=== PATIENT | male | born 1980 | race African-American/Black ===

== ENCOUNTER 2019-07-17 17:16 | Emergency (ER) | payer SELFPAY ==
[~2019-07-17] VITALS: Ht 182.9 cm; Wt 97.7 kg
[2019-07-17 17:38] VITALS: Ht 182.9 cm; Wt 97.7 kg
[2019-07-17 19:33] VITALS: BP 132/84
== END 2019-07-17 19:32 | disposition home or self-care (01) ==
LOC: D.ER 17:16
DX: F41.8 Other specified anxiety disorders (principal); F19.11 Other psychoactive substance abuse, in remission

== ENCOUNTER 2019-07-20 00:31 | Emergency (ER) | payer SELFPAY ==
[~2019-07-20] VITALS: Ht 182.9 cm; Wt 97.7 kg
[2019-07-20 00:34] VITALS: Ht 182.9 cm; Wt 97.7 kg
[2019-07-20 01:49] LABS: BASOPHILS 0.2 % (0-2); EOSINOPHILS 2.2 % (0-7); HEMATOCRIT 46.5 % (42.0-54.0); HEMOGLOBIN 15.6 g/dL (13.5-17.5); LYMPHOCYTES 41.9 % (15-50); MCH 30.8 pg (26.0-34.0); MCHC 33.5 g/dL (31.0-37.0); MCV 91.9 fL (80.0-100.0); MEAN PLATELET VOLUME 9.9 fL (7.4-10.4); MONOCYTES 9.6 % (2-11); NEUTROPHILS 46.1 % (40-80); PLATELET COUNT 310 10x3/uL (130-400); RBC 5.06 10x6/uL (4.20-6.10); RDW 13.4 % (11.5-14.5)
[2019-07-20 01:51] LABS: ANION GAP 11.6 mmol/L (8-16); CARBON DIOXIDE 31.4 mmol/L (21.0-32.0); CREATININE - SERUM 1.2 mg/dL (0.6-1.3)
[2019-07-20 01:57] LABS: ALBUMIN 3.8 g/dL (3.4-5.0); BILIRUBIN - TOTAL 0.3 mg/dL (0.2-1.3); PROTEIN - SERUM 7.7 g/dL (6.4-8.2)
[2019-07-20 02:22] VITALS: BP 122/67
== END 2019-07-20 02:25 | disposition home or self-care (01) ==
LOC: D.ER 00:31
PROVIDERS: Family Medicine
DX: F41.1 Generalized anxiety disorder (principal)

== ENCOUNTER 2020-03-25 12:20 | Emergency (ER) | payer BC ==
[~2020-03-25] VITALS: Ht 182.9 cm; Wt 104.5 kg
[2020-03-25 12:25] VITALS: Ht 182.9 cm; Wt 104.5 kg
[2020-03-25 13:44] VITALS: BP 160/87
== END 2020-03-25 13:44 | disposition home or self-care (01) ==
LOC: D.ER 12:20
DX: R00.0 Tachycardia, unspecified (principal); F15.10 Other stimulant abuse, uncomplicated; F41.9 Anxiety disorder, unspecified

== ENCOUNTER 2020-04-17 15:11 | Emergency (ER) | payer BC ==
[~2020-04-17] VITALS: Ht 182.9 cm; Wt 104.5 kg
[2020-04-17 15:39] VITALS: Ht 182.9 cm; Wt 104.5 kg
[2020-04-17 16:29] LABS: BILIRUBIN NEGATIVE (NEGATIVE); KETONE NEGATIVE (NEGATIVE); NITRITE NEGATIVE (NEGATIVE); UROBILINOGEN NORMAL mg/dL (< 2)
[2020-04-17 16:30] LABS: UDS - AMPHET NEGATIVE QUAL (NEGATIVE); UDS - BARB NEGATIVE QUAL (NEGATIVE); UDS - BENZO NEGATIVE QUAL (NEGATIVE); UDS - COCAINE NEGATIVE QUAL (NEGATIVE); UDS - OPIATE NEGATIVE QUAL (NEGATIVE); UDS - PCP NEGATIVE QUAL (NEGATIVE); UDS - THC NEGATIVE QUAL (NEGATIVE)
[2020-04-17 17:14] LABS: BASOPHILS 0.2 % (0-2); EOSINOPHILS 0.6 % (0-7); HEMATOCRIT 45.8 % (42.0-54.0); HEMOGLOBIN 15.3 g/dL (13.5-17.5); IMMATURE GRANULOCYTES 0.4 % (0-5); LYMPHOCYTES 37.1 % (15-50); MCH 30.4 pg (26.0-34.0); MCHC 33.4 g/dL (31.0-37.0); MCV 90.9 fL (80.0-100.0); MEAN PLATELET VOLUME 10.1 fL (7.4-10.4); MONOCYTES 10.3 % (2-11); NEUTROPHILS 51.4 % (40-80); PLATELET COUNT 314 10x3/uL (130-400); RBC 5.04 10x6/uL (4.20-6.10); RDW 12.9 % (11.5-14.5); WBC 5.3 10x3/uL (4.8-10.8)
[2020-04-17 17:29] LABS: CALC OSMOLALITY 276 mosm/kg (275-300); CALCIUM 9.4 mg/dL (8.5-10.1); CARBON DIOXIDE 29.5 mmol/L (21.0-32.0); CHLORIDE - SERUM 104 mmol/L (98-107); CREATININE - SERUM 1.1 mg/dL (0.6-1.3); GLUCOSE 101 mg/dL (74-106); SODIUM 138 mmol/L (136-145); UREA NITROGEN 16 mg/dL (7-18); eGFR NON AFRICAN AMERICAN 79 mL/min (90-120)
[2020-04-17 17:36] LABS: ALBUMIN 3.7 g/dL (3.4-5.0); ALKALINE PHOSPHATASE 75 U/L (30-120); ALT (SGPT) 29 U/L (10-68); BILIRUBIN - TOTAL 0.33 mg/dL (0.2-1.3); MAGNESIUM - SERUM 2.1 mg/dL (1.8-2.4); PROTEIN - SERUM 7.7 g/dL (6.4-8.2)
[2020-04-18 16:20] VITALS: BP 136/83
== END 2020-04-18 17:04 | disposition home or self-care (01) ==
LOC: D.ER 15:11
PROVIDERS: Family Medicine
DX: F32.9 Major depressive disorder, single episode, unspecified (principal); K21.9 Gastro-esophageal reflux disease without esophagitis; R45.851 Suicidal ideations